=== PATIENT | male | born 1995 | race Two or more races ===

== ENCOUNTER 2019-12-22 18:29 | Emergency (ER) | payer OTHER ==
[~2019-12-22] VITALS: Ht 172.7 cm; Wt 78.6 kg
[2019-12-22] MEDS ORDERED: FLUORESCEIN OPHTH TEST STRIP. OS ONE (19:00)
[2019-12-22] MEDS ORDERED: TETRACAINE 0.5% OPHTH SOLUTION 4ML BOTTLE. OS ONE (19:00)
[2019-12-22 19:05] VITALS: BP 142/75
[2019-12-22] MEDS ORDERED: DIPHTH,PERTUSS(ACELL),TET TOX 0.5 ML DISP.SYRIN. VAX IM ONE (19:15)
[2019-12-22] MEDS ORDERED: ERYT1OIN6 OP (20:51)
--- NOTE | 2019-12-22 20:51 | PHYS DOC ---
Past Medical History Past Medical History: No Pertinent History (RUBIN MENDES APRN) Past Surgical History: No Surgical History (RUBIN MENDES APRN) Smoking Status: Never Smoker Alcohol Use: None (RUBIN MENDES APRN) Attending Signature I have participated in the care of this patient and I have reviewed and agree with all pertinent clinical information above including history, exam, and recommendations. (NETO ORTEGA MD) Adult General Chief Complaint Chief Complaint: FOREIGN BODY/EYES HPI HPI Patient is a 24 year old [place]isian-speaking male who presents to the ED today with possible foreign object to the left eye, patient states he was cutting wood with no eye protection when a piece of wood chip flew into his left eye. Patient denies any vision loss. Reports left eye irritation. (RUBIN MENDES APRN) Review of Systems Review of Systems Constitutional: Denies fever or chills [] Eyes: left eye possible foreign body. Denies change in visual acuity Musculoskeletal: Denies back pain or joint pain [] Integument: Denies rash or skin lesions [] Neurologic: Denies headache, focal weakness or sensory changes [] All other systems were reviewed and found to be within normal limits, except as documented in this note. (RUBIN MENDES APRN) Current Medications Current Medications Current Medications Medications (Trade) Dose Ordered Sig/Adi Start Time Stop Time Status Last Admin Dose Admin Diphtheria/ Tetanus/Acell Pertussis (Boostrix) 0.5 ml ONCE ONCE 12/22/19 19:15 2 19:17 DC 12/22/19 19:35 0.5 ML Fluorescein Sodium (Ful-Janna) 1 strip 1X ONCE 12/22/19 19:00 12/22/19 19:03 DC 12/22/19 19:00 1 STRIP Tetracaine HCl (Tetracaine) 1 drop 1X ONCE 12/22/19 19:00 12/22/19 19:03 DC 12/22/19 19:00 1 DROP (NETO ORTEGA MD) Allergies Allergies Allergies Coded Allergies Type Severity Reaction Last Updated Verified No Known Drug Allergies 12/22/19 No (NETO ORTEGA MD) Physical Exam Physical Exam Constitutional: Well developed, well nourished, no acute distress, non-toxic appearance. [] HENT: Normocephalic, atraumatic, bilateral external ears normal, oropharynx moist, no oral exudates, nose normal. [] Eyes: PERRLA, EOMI, left conjunctiva is moderately injected. Eye exam under cruz lamp was noted for small corneal abrasion ] Skin: Warm, dry, no erythema, no rash. [] Back: No tenderness, no CVA tenderness. [] Extremities: No tenderness, no cyanosis, no clubbing, ROM intact, no edema. [] Neurologic: Alert and oriented X 3, normal motor function, normal sensory function, no focal deficits noted. [] Psychologic: Affect normal, judgement normal, mood normal. [] (RUBIN MENDES APRN) Current Patient Data Vital Signs Vital Signs Date Time Temp Pulse Resp B/P (MAP) Pulse Ox O2 Delivery O2 Flow Rate FiO2 12/22/19 19:05 98.5 71 16 142/75 (97) 96 Room Air 98.5 (NETO ORTEGA MD) EKG EKG [] (RUBIN MENDES APRN) Radiology/Procedures Radiology/Procedures [] (RUBIN MENDES APRN) Course & Med Decision Making Course & Med Decision Making Pertinent Labs and Imaging studies reviewed. (See chart for details) Patient has corneal abrasion to the left eye, discharged with instructions to follow-up with the deburr technician in the course of this week or next week, tetanus updated, given prescription for erythromycin. (RUBIN MENDES APRN) Dragon Disclaimer Dragon Disclaimer This electronic medical record was generated, in whole or in part, using a voice recognition dictation system. (RUBIN MENDES APRN) Departure Departure Impression: Primary Impression: Corneal abrasion, left Disposition: 01 HOME, SELF-CARE Condition: STABLE Referrals: NO PCP (PCP) ELIANE WILKES MD follow up in one week Patient Instructions: Eye - Corneal Abrasion, [id number] Additional Instructions: You have a corneal abrasion to the left eye. Use the prescribed antibiotics as ordered for 7 days. Follow-up with the deburr technician provided in the next 7 days. Scripts Erythromycin Base (Erythromycin) 1 Gm Oint...g. 0.5 ELISE OP Q4HRS W/A, #1 MISC APPLY 0.5 INCH TO THE LEFT EYE EVERY 4 HOURS WHILE AWAKE FOR 7 DAYS Prov: RUBIN MENDES APRN 12/22/19 Problem Qualifiers Primary Impression: Corneal abrasion, left Encounter type: initial encounter Qualified Codes: S05.02XA - Injury of conjunctiva and corneal abrasion without foreign body, left eye, initial encounter RUBIN MEDNES APRN Dec 22, 2019 20:51 NETO ORTEGA MD Dec 23, 2019 02:47
== END 2019-12-22 20:59 | disposition home or self-care (01) ==
LOC: ER 18:29
DX: S05.02XA Injury of conjunctiva and corneal abrasion without foreign body, left eye, initial encounter (principal); W22.8XXA Striking against or struck by other objects, initial encounter; Y93.89 Activity, other specified; Y92.89 Other specified places as the place of occurrence of the external cause; Y99.8 Other external cause status
CPT/HCPCS: 90471; 90715; 99283